=== PATIENT | female | born 1990 | race Caucasian/White ===

== ENCOUNTER 2018-11-28 04:58 | Emergency (ER) | payer BC ==
[2018-11-28 05:06] VITALS: BP 127/86
--- NOTE | 2018-11-28 05:15 | ER Report ---
History and Physical Time Seen By MD: 05:15 Hx. of Stated Complaint: PT STARTED HAVING PAIN IN THE KIDNEY AREA AROUND 11PM. STATES HE HAS A HX OF UTIS BUT NOT THIS BAD FEELING. PT HAD TO TAKE OFF HER YOGA PANTS BECAUSE THE PRESSURE OF THE PANTS WAS HURTING HER BACK HPI/ROS CHIEF COMPLAINT: flank pain HISTORY OF PRESENT ILLNESS: This is a 28 year old female. she began having flank pain in the kidney area on the right. Started at about 2300 hours. History of UTIs, but this feels different. Even light touch from clothing causes severe pain. No fevers. No dysuria or frequency or hematuria. No diarrhea. No nausea or vomiting. No shortness of breath. Allergies: Coded Allergies: No Known Drug Allergies (Unverified , 11/28/18) Home Meds No Active Prescriptions or Reported Meds Reviewed Nurses Notes: Yes Hx Substance Use Disorder: No Hx Alcohol Use: No Constitutional Physical Exam General Appearance: Alert, no acute distress. Eyes: Pupils equal and round no injection. ENT: Normal oral mucosa. Moist mucous membranes. Neck: Neck is supple and non tender. Respiratory: Chest is non tender, lungs are clear to auscultation. Cardiac: regular rate and rhythm Gastrointestinal: Abdomen is soft, non-tender to palpation. No CVA tenderness to percussion Musculoskeletal: Lower back on right and around to lower abdomen has very tender to light touch and palpation. Skin: No rashes or lesions. DIFFERENTIAL DIAGNOSIS: After history and physical exam differential diagnosis was considered for pain in the right lower back around into the right abdomen. No rashes present, but the pain presents more like a hypersensitivity such as what she would get with the shingles or herpetic neuralgia, but there is no rash. Other things that could be considered would be other abdominal pain or flank pain issue such as urinary tract infection and kidney stones. Medical Decision Making Data Points Laboratory Hematology Test 11/28/18 05:02 11/28/18 05:21 Urine Color Yellow Urine Clarity Slightly-cloudy Urine pH 5.0 pH (4.8-9.5) Urine Specific [place] 1.036 Urine Protein 30 mg/dL (NEGATIVE) Urine Glucose (UA) Negative mg/dL (NEGATIVE) Urine Ketones Trace mg/dL (NEGATIVE) Urine Blood Negative (NEGATIVE) Urine Nitrite Negative (NEGATIVE) Urine Bilirubin Moderate (NEGATIVE) Urine Urobilinogen 0.2 mg/dL (0.2-1.9) Urine Leukocyte Esterase Negative (NEGATIVE) Urine RBC 18 /HPF (0-2/HPF) Urine WBC 1 /HPF (0-5/HPF) Urine Squamous Epithelial Cells Many /LPF (</=FEW) Urine Calcium Oxalate Crystals Few /HPF (NONE) Urine Bacteria Negative /HPF (NONE-FEW) Urine Hyaline Casts Few /LPF (NONE-FEW) Urine Mucus Few /HPF (NONE-FEW) Red Blood Count 4.76 M/uL (4.17-5.56) Mean Corpuscular Volume 90.2 fL (80.0-96.0) Mean Corpuscular Hemoglobin 31.1 pg (26.0-33.0) Mean Corpuscular Hemoglobin Concent 34.5 g/dL (32.0-36.0) Red Cell Distribution Width 13.3 % (11.5-14.5) Mean Platelet Volume 7.6 fL (7.2-11.1) Neutrophils (%) (Auto) 79.8 % (39.4-72.5) Lymphocytes (%) (Auto) 12.9 % (17.6-49.6) Monocytes (%) (Auto) 7.0 % (4.1-12.4) Eosinophils (%) (Auto) 0.0 % (0.4-6.7) Basophils (%) (Auto) 0.3 % (0.3-1.4) Nucleated RBC Relative Count (auto) 0.0 /100WBC Neutrophils # (Auto) 6.5 K/uL (2.0-7.4) Lymphocytes # (Auto) 1.1 K/uL (1.3-3.6) Monocytes # (Auto) 0.6 K/uL (0.3-1.0) Eosinophils # (Auto) 0.0 K/uL (0.0-0.5) Basophils # (Auto) 0.0 K/uL (0.0-0.1) Nucleated RBC Absolute Count (auto) 0.00 K/uL Sodium Level 136 mmol/L (137-145) Potassium Level 3.3 mmol/L (3.5-5.0) Chloride Level 99 mmol/L (98-107) Carbon Dioxide Level 27 mmol/L (22-31) Blood Urea Nitrogen 9 mg/dl (7-18) Creatinine 0.90 mg/dl (0.52-1.04) Glomerular Filtration Rate Calc > 60.0 Random Glucose 121 mg/dl (75-110) Calcium Level 9.0 mg/dl (8.4-10.2) Total Bilirubin 0.2 mg/dl (0.2-1.3) Aspartate Amino Transf (AST/SGOT) 23 U/L (0-35) Alanine Aminotransferase (ALT/SGPT) 22 U/L (0-56) Alkaline Phosphatase 56 U/L (0-126) Total Protein 7.8 g/dl (6.3-8.2) Albumin 4.5 g/dl (3.5-5.0) Human Chorionic Gonadotropin, Qual Negative (NEGATIVE) Chemistry Test 11/28/18 05:02 11/28/18 05:21 Urine Color Yellow Urine Clarity Slightly-cloudy Urine pH 5.0 pH (4.8-9.5) Urine Specific [place] 1.036 Urine Protein 30 mg/dL (NEGATIVE) Urine Glucose (UA) Negative mg/dL (NEGATIVE) Urine Ketones Trace mg/dL (NEGATIVE) Urine Blood Negative (NEGATIVE) Urine Nitrite Negative (NEGATIVE) Urine Bilirubin Moderate (NEGATIVE) Urine Urobilinogen 0.2 mg/dL (0.2-1.9) Urine Leukocyte Esterase Negative (NEGATIVE) Urine RBC 18 /HPF (0-2/HPF) Urine WBC 1 /HPF (0-5/HPF) Urine Squamous Epithelial Cells Many /LPF (</=FEW) Urine Calcium Oxalate Crystals Few /HPF (NONE) Urine Bacteria Negative /HPF (NONE-FEW) Urine Hyaline Casts Few /LPF (NONE-FEW) Urine Mucus Few /HPF (NONE-FEW) White Blood Count 8.2 k/uL (4.5-11.0) Red Blood Count 4.76 M/uL (4.17-5.56) Hemoglobin 14.8 g/dL (12.0-16.0) Hematocrit 43.0 % (34.0-47.0) Mean Corpuscular Volume 90.2 fL (80.0-96.0) Mean Corpuscular Hemoglobin 31.1 pg (26.0-33.0) Mean Corpuscular Hemoglobin Concent 34.5 g/dL (32.0-36.0) Red Cell Distribution Width 13.3 % (11.5-14.5) Platelet Count 320 K/uL (150-450) Mean Platelet Volume 7.6 fL (7.2-11.1) Neutrophils (%) (Auto) 79.8 % (39.4-72.5) Lymphocytes (%) (Auto) 12.9 % (17.6-49.6) Monocytes (%) (Auto) 7.0 % (4.1-12.4) Eosinophils (%) (Auto) 0.0 % (0.4-6.7) Basophils (%) (Auto) 0.3 % (0.3-1.4) Nucleated RBC Relative Count (auto) 0.0 /100WBC Neutrophils # (Auto) 6.5 K/uL (2.0-7.4) Lymphocytes # (Auto) 1.1 K/uL (1.3-3.6) Monocytes # (Auto) 0.6 K/uL (0.3-1.0) Eosinophils # (Auto) 0.0 K/uL (0.0-0.5) Basophils # (Auto) 0.0 K/uL (0.0-0.1) Nucleated RBC Absolute Count (auto) 0.00 K/uL Glomerular Filtration Rate Calc > 60.0 Calcium Level 9.0 mg/dl (8.4-10.2) Total Bilirubin 0.2 mg/dl (0.2-1.3) Aspartate Amino Transf (AST/SGOT) 23 U/L (0-35) Alanine Aminotransferase (ALT/SGPT) 22 U/L (0-56) Alkaline Phosphatase 56 U/L (0-126) Total Protein 7.8 g/dl (6.3-8.2) Albumin 4.5 g/dl (3.5-5.0) Human Chorionic Gonadotropin, Qual Negative (NEGATIVE) Urinalysis Test 11/28/18 05:02 Urine Color Yellow Urine Clarity Slightly-cloudy Urine pH 5.0 pH (4.8-9.5) Urine Specific [place] 1.036 Urine Protein 30 mg/dL (NEGATIVE) Urine Glucose (UA) Negative mg/dL (NEGATIVE) Urine Ketones Trace mg/dL (NEGATIVE) Urine Blood Negative (NEGATIVE) Urine Nitrite Negative (NEGATIVE) Urine Bilirubin Moderate (NEGATIVE) Urine Urobilinogen 0.2 mg/dL (0.2-1.9) Urine Leukocyte Esterase Negative (NEGATIVE) Urine RBC 18 /HPF (0-2/HPF) Urine WBC 1 /HPF (0-5/HPF) Urine Squamous Epithelial Cells Many /LPF (</=FEW) Urine Calcium Oxalate Crystals Few /HPF (NONE) Urine Bacteria Negative /HPF (NONE-FEW) Urine Hyaline Casts Few /LPF (NONE-FEW) Urine Mucus Few /HPF (NONE-FEW) EKG/Imaging Imaging CT ABDOMEN PELVIS W/ CON HISTORY: Right flank pain. Constant urge to urinate for one day. COMPARISON: None. TECHNIQUE: Axial images were obtained from the lung bases through the symphysis pubis with intravenous contrast. Sagittal and coronal reformats were performed. One of the following dose optimization techniques was utilized in the performance of this exam: Automated exposure control; adjustment of the mA a nd/or kV according to the patient's size; or use of an iterative reconstruction technique. Specific details can be referenced in the facility's radiology CT exam operational policy. CONTRAST: 75 mL IV [id number]. FINDINGS: Lower chest: Normal. Liver: Normal. Gallbladder/biliary: Cholecystectomy. Mild extrahepatic ductal dilation, not uncommonly seen in patients who are post cholecystectomy. No ductal filling defect. Pancreas: Normal. Spleen: Normal. Adrenals: Normal. Kidneys/ureters/bladder: Mild right pelvocaliectasis. 2 mm nonobstructing calculus in the inferior right kidney. No obstructing calculus. Normal enhanc ement of the kidneys. There is enhancement of the right renal calyces, right renal pelvis, and right ureter. The left ureter and the bladder are normal. GI/mesentery/peritoneal cavity: There is a large amount of stool throughout colon. There is no bowel obstruction. There is no wall thickening or pericolonic stranding. The appendix is normal. No free air or free fluid. Vessels: No atherosclerotic disease. No aneurysm. No dissection. Nodes: Normal. Pelvis: Uterus and ovaries are normal. Bones/vertebra/soft tissues: Slight rightward curvature of the thoracolumbar spine. Vertebral body heights are maintained. IMPRESSION: 1. 2 mm nonobstructing calculus in the inferior right kidney without hydronephrosis. There are right urothelial enhancement and right pelvocaliectasis, which can be seen with pyelitis/ureteritis. No CT evidence for pyelonephritis and no bladder wall thickening to indicate cystitis. 2. Large amount stool throughout colon suggests constipation. No bowel obstruction. 3. Normal appendix. Report Dictated By: Prabha Lawrence at 11/28/2018 6:29 AM ED Course/Re-evaluation Clinical Indication for ER IV: Hydration, IV Access ED Course Labs are unremarkable as is the imaging as noted above. Discussed all this with the patient. Also discussed possibility of this being shingles without a rash seen yet. Recommended that she watch this and use [id number] medications as needed for pain. Should she get a rash, she should return to the ER within 4 8-72 hours or see her doctor within that timeframe to get started on antiviral and steroids. Decision to Disposition Date: November 28, 2018 Decision to Disposition Time: 07:36 Depart Departure Latest Vital Signs Impression: Primary Impression: Flank pain Condition: Improved Disposition: HOME OR SELF-CARE New Scripts No Active Prescriptions or Reported Meds Patient Instructions: Flank Pain (ED) Additional Instructions: We did not find a cause for your abdominal pain today. This appears to be a hypersensitivity in the abdominal wall. The most likely cause of this would be shingles, although no rash has shown up yet. Take Ibuprofen or Tylenol as needed for pain. If a rash does show up, please let your regular doctor know or let us know. If a rash shows up, we would want to start an antiviral and steroid at that time, and should start within about 48-72 hours of the rash presentation. If pain is not improving in the next 24-48 hours, seeing your regular doctor or returning here for re-evaluation would be appropriate. AUDIE SHAY MD November 28, 2018 05:15
[2018-11-28] MEDS ORDERED: NS(*) 0.9% 1000 ML BAG 1,000 ML IV ONE (05:20)
[2018-11-28] MEDS ORDERED: HYDROMORPHONE HCL 1 MG/ML SYRINGE IVP ONE (05:20)
[2018-11-28] MEDS ORDERED: ONDANSETRON 4 MG/2 ML VIAL IVP ONE (05:20)
[2018-11-28 05:31] LABS: PLATELET COUNT, AUTOMATED 320 K/uL (150-450)
[2018-11-28] MEDS ORDERED: IOPAMIDOL 76% 100 ML INFUS BTL 100 ML ONE (06:06)
--- NOTE | 2018-11-28 06:42 | RADIOLOGY IMAGING REPORT ---
FACILITY: [facility] [place] PATIENT NAME: Louise Hernández : 1990 MR: [id number] V: [id number] EXAM DATE: ORDERING PHYSICIAN: AUDIE SHAY TECHNOLOGIST: Location: [facility] Patient: Louise Hernández : 1990 Visit/Account:[id number] Date of Sevice: 11/28/2018 CT ABDOMEN PELVIS W/ CON HISTORY: Right flank pain. Constant urge to urinate for one day. COMPARISON: None. TECHNIQUE: Axial images were obtained from the lung bases through the symphysis pubis with intravenou s contrast. Sagittal and coronal reformats were performed. One of the following dose optimization techniques was utilized in the performance of this exam: Autom ated exposure control; adjustment of the mA and/or kV according to the patient's size; or use of an i terative reconstruction technique. Specific details can be referenced in the facility's radiology CT exam operational policy. CONTRAST: 75 mL IV [id number]. FINDINGS: Lower chest: Normal. Liver: Normal. Gallbladder/biliary: Cholecystectomy. Mild extrahepatic ductal dilation, not uncommonly seen in patie nts who are post cholecystectomy. No ductal filling defect. Pancreas: Normal. Spleen: Normal. Adrenals: Normal. Kidneys/ureters/bladder: Mild right pelvocaliectasis. 2 mm nonobstructing calculus in the inferior ri ght kidney. No obstructing calculus. Normal enhancement of the kidneys. There is enhancement of the r ight renal calyces, right renal pelvis, and right ureter. The left ureter and the bladder are normal. GI/mesentery/peritoneal cavity: There is a large amount of stool throughout colon. There is no bowel obstruction. There is no wall thickening or pericolonic stranding. The appendix is normal. No free ai r or free fluid. Vessels: No atherosclerotic disease. No aneurysm. No dissection. Nodes: Normal. Pelvis: Uterus and ovaries are normal. Bones/vertebra/soft tissues: Slight rightward curvature of the thoracolumbar spine. Vertebral body he ights are maintained. IMPRESSION: 1. 2 mm nonobstructing calculus in the inferior right kidney without hydronephrosis. There are right urothelial enhancement and right pelvocaliectasis, which can be seen with pyelitis/ureteritis. No CT evidence for pyelonephritis and no bladder wall thickening to indicate cystitis. 2. Large amount stool throughout colon suggests constipation. No bowel obstruction. 3. Normal appendix. Report Dictated By: Prabha Lawrence at 11/28/2018 6:29 AM Report E-Signed By: Prabha Lawrence at 11/28/2018 6:38 AM WSN:[id number]
== END 2018-11-28 07:55 | disposition home or self-care (01) ==
LOC: ER 05:14
DX: R10.9 Unspecified abdominal pain (principal)
CPT/HCPCS: 74177; 81001; 84703; 85025; 96361; 96374; 96375; 99284; J1170; J2405; J7030; Q9967; 82040; 82247; 82310; 82374; 82435; 82565; 82947; 84075; 84132; 84155; 84295; 84450; 84460; 84520